=== PATIENT | female | born 1995 | race Two or more races ===

== ENCOUNTER 2024-11-12 11:07 | Emergency (ER) | payer OTHER, SELFPAY ==
[2024-11-12 11:17] VITALS: BP 102/75
[2024-11-12 11:50] VITALS: BMI 27.0
[2024-11-12] MEDS: MOTRIN 400 MG PO (13:04)
[2024-11-12] MEDS: KEFLEX 500 MG PO (13:05)
--- NOTE | 2024-11-12 14:14 | ED.GENMED ---
History of Present Illness
General
Chief Complaint: Skin Problem
Source: patient
Exam Limitations: none
Time Seen by Provider: 11/12/24 12:40
Nursing documentation reviewed up to this point in time: agreed with
History of Present Illness
History of Present Illness:
Patient presents to ED secondary to worsening right buttock pain with swelling over the past 3 days. Denies trauma. Denies difficulty with bowel movements. Denies nausea or vomiting. Denies previous history of similar symptoms.
Past History
Past History
ED Past Medical History: None
ED Past Surgical History: None
Social History
Tobacco: Non-smoker
Alcohol: None
Drug: None
Personal: Single
Living: with family
Employment: Not employed
Family History
Family History: Other (Noncontributory)
Review of Systems
Review of Systems
Allergies reviewed?: Yes
All Other Systems: ROS reviewed and negative except as documented in HPI and ROS
Constitutional: Reports no symptoms; Denies fever
ABD/GI: Reports no symptoms; Denies nausea or vomiting
Musculoskeletal: Reports no symptoms
Skin: Reports other (buttock abscess)
Neurological: Reports no symptoms
Phy Exam
Physical Exam
Physical Exam:
Physical Exam
General: mild painful distress, not acutely ill. afebrile
Head: nc/at. eomi
Neck: supple. no meningeal signs
Abdomen: normal bowel sounds. not tender.
Neuro: alert and oriented x 3. no focal neurological deficits
Skin: an approx 1cm area of erythema with raised lesion, along with tenderness. no open drainage
Psychiatric: well kept. interactive and cooperative
Extremities: no edema. no calf tenderness.
Sepsis
Sepsis Screening
Sepsis Assessment: Sepsis Ruled Out
Sepsis Screen
Sepsis Screen: Sepsis Ruled Out
Date: 11/12/24
Time: 19:15
Course
Orders/Labs/Results
Orders:
Orders
11/12/24 12:52
Cephalexin Monohydrate [Keflex] 500 mg PO NOW STA
Ibuprofen [Motrin] 400 mg PO NOW STA
11/12/24 14:40
Wound Culture [Wound/Abscess/Other Culture] Urgent
KYRA Source: Buttock
Specimen Description:
Date Specimen was Collected: 11/12/24
Time Specimen was Collected: 14:39
Vital Signs
Initial and Last Documented VS:
Initial Vital Signs
Temp Pulse Resp BP Pulse Ox
97.8 F 88 18 102/75 99
11/12/24 11:17 11/12/24 11:17 11/12/24 11:17 11/12/24 11:17 11/12/24 11:17
Last Documented Vital Signs
Temp Pulse Resp BP Pulse Ox
97.8 F 80 18 104/67 99
11/12/24 11:17 11/12/24 14:50 11/12/24 14:50 11/12/24 14:50 11/12/24 14:50
Procedures
Incision/Drainage/Joint Aspiration
Right Upper Buttock:
Anethesia: 1% Lidocaine with Epi
Preparation: cleaned with Betadine
Type of procedure: incise
Nature of site: abscess
Description of abscess: less than 3cm
Loculations broken up: Yes
How much fluid was obtained?: small amount
Fluid description: purulent
Treatment: packed with gauze
MDM/Problems Addressed
MDM/Problems Addressed:
History and exam consistent with right buttock abscess with cellulitic changes. I&D will be performed in ED and patient will be started on Keflex x 3 days afterwards. Will advise follow-up PCP for reevaluation, or return to ED with worsening
symptoms. Instructions provided to the patient via language line and all questions answered.
*Pulse Oximetry
SaO2: 99
Oxygen Mode of Delivery: Room air
Patient hypoxic: no
*Critical Care Note
Total Time (30-74mins, 75-104mins- exclusive of procedures): Not Applicable
ED Attending Note
-
Portions of this chart may have been created with voice recognition software.� Occasional wrong word or��sound alike� substitutions may have occurred due to the inherent limitations of voice recognition software.
Discharge Plan
Departure
Patient Disposition: Home (Routine Discharge)
Date of Disposition: 11/12/24
Time of Disposition: 14:19
Patient with high blood pressure during this ER visit?: No
Condition: Good
Discharge Problem:
Abscess of buttock, right
Instructions: Skin Abscess
Prescriptions:
New
cephalexin 500 mg tablet
500 mg PO Q8H Qty: 8 0RF
No Action
ibuprofen 600 MG tablet
600 mg PO TIDPRN PRN (Reason: pain) Qty: 30 0RF
nitrofurantoin monohyd/m-cryst [Macrobid] 100 mg Capsule
100 mg PO BID
Referrals:
NONE,* [Family Provider, Internal Medicine]
Activity Restrictions/Additional Instructions:
As discussed, please follow up with your primary care physician for re-evaluation or return to ED with worsening symptoms. Your prescription has been sent electronically to [facility] pharmacy in [place].
Interventions
Interventions:
*Risk Screen - Suicide Last Done: 11/12/24 11:17
*General Assessment Last Done: 11/12/24 11:50
*Neglect/Abuse Screening Last Done: 11/12/24 11:17
*ED- Fall Risk Assessment Last Done: 11/12/24 11:50
*ED COVID-19 Vaccine History Last Done: 11/12/24 11:17
*Nursing Disposition Last Done: 11/12/24 14:56
ED-Skin Assessment Last Done: 11/12/24 11:52
Discharge Date and Time
Discharge Date/Time: 11/12/24 14:57
Print Language: IRISH
[2024-11-12 14:50] VITALS: BP 104/67
== END 2024-11-12 14:57 | disposition home or self-care (01) ==
LOC: EMR 11:07
PROVIDERS: EMERGENCY PHYSICIAN Emergency Medicine
DX: L02.31 Cutaneous abscess of buttock (principal)
CPT/HCPCS: 99283; 10060; 87070; 87147; 87205